=== PATIENT | male | born 1995 | race Caucasian/White ===

== ENCOUNTER 2017-01-19 19:57 | Emergency (ER) | payer OTHER ==
[~2017-01-19] VITALS: Ht 177.8 cm; Wt 99.3 kg
[2017-01-19 20:19] VITALS: Ht 177.8 cm; Wt 99.3 kg
[2017-01-19] MEDS ORDERED: FLUT9.9S NASAL (21:48)
[2017-01-19] MEDS ORDERED: BENZ100C70 PO (21:49)
[2017-01-19] MEDS ORDERED: LORA-186 PO (21:49)
[2017-01-19] MEDS ORDERED: IBUP400T22 PO (21:49)
--- NOTE | 2017-01-19 21:56 | RADRPT ---
PROCEDURE: XR Chest. CLINICAL INDICATION: Cough TECHNIQUE: Single AP portable chest. COMPARISON: None. FINDINGS: The cardiomediastinal silhouette is within normal limits of size ..The lungs are clear without pleur al effusion or focal consolidation. No pneumothorax. The osseous structures and soft tissues are unr emarkable. IMPRESSION: 1. No evidence for active cardiopulmonary disease. RPTAT:AAJJ Yanci Sagastume Physician Date Time Electronically viewed and signed by Yanci Sagastume Physician on 01/19/2017 21:55 CED/
--- NOTE | 2017-01-19 21:57 | ERD ---
ER Documentation Chief Complaint Date/Time DATE: 01/19/17 TIME: 21:55 Chief Complaint Cough and congestion X 1 month. HPI This is a 21-year-old male presenting to the emergency department complaining of cough, congestion for 1 month. Patient states the cough has been getting better. Denies any current fevers. Denies taking any medications for this. Denies any chest pain or shortness of breath. ROS All systems reviewed and are negative except as per history of present illness. Medications Home Meds Active Scripts Ibuprofen* (Ibuprofen*) 400 Mg Tablet, 400 MG PO Q6H Y for PAIN, #30 TAB Prov:BEAU DAS PA-C 01/19/17 Benzonatate* (Tessalon Perle*) 100 Mg Capsule, 100 MG PO Q8H Y for COUGH, #20 CAP Prov:BEAU DAS PA-C 01/19/17 Loratadine* (Claritin*) 10 Mg Tablet, 10 MG PO DAILY, #30 TAB Prov:BEAU DAS PA-C 01/19/17 Fluticasone Propionate (Flonase Allergy Relief) 9.9 Ml [place].susp, 1 SPRAY NASAL BID for 14 Days, #1 BOTTLE TO EACH NOSTRIL Prov:BEAU DAS PA-C 01/19/17 PMhx/Soc Medical and Surgical Hx: pt denies Surgical Hx History of Surgery: No Anesthesia Reaction: No Hx Neurological Disorder: No Hx Respiratory Disorders: No Hx Cardiac Disorders: No Hx Psychiatric Problems: Yes (adhd) Hx Miscellaneous Medical Probl: No Hx Alcohol Use: Yes Hx Substance Use: No Hx Tobacco Use: No Smoking Status: Never smoker Physical Exam Vitals Vital Signs Date Time Temp Pulse Resp B/P Pulse Ox O2 Delivery O2 Flow Rate FiO2 01/19/17 20:19 98.0 89 20 136/83 100 Physical Exam GENERAL: well-developed/well-nourished, in no apparent distress, non-toxic appearing HEAD: NC/AT, no swelling noted in frontal or maxillary areas EARS: bilateral tympanic membrane is intact without erythema or effusion NARES: congested THROAT: oropharynx non-erythematous, postnasal drip EYES: Conjunctiva normal NECK: Supple, no lymphadenopathy PULM: CTA bilaterally, no rales, rhonchi, or wheezing heard CV: Normal S1S2, RRR, good capillary refill GI: Soft, non-distended, normal bowel sounds, non-tender BACK: No midline tenderness, no masses EXT No clubbing, cyanosis, or edema NEURO: Alert and Orientated SKIN: Intact, normal turgor PSYCH: Normal mood and mentation Procedures/MDM 21-year-old male presenting to the emergency department complaining of cough and symptoms of upper respiratory infection for the past month, this is likely due to a viral illness. On examination patient was breathing well on room air, and her lungs are clear to auscultation bilaterally, he is afebrile. My clinical suspicion is low suspicion for bacterial sinusitis, pneumonia, strep pharyngitis, or pulmonary emergencies due to physical examination. Since patient's sister had pneumonia a week ago he wanted a chest x-ray, CXR on the ER. Radiologist stated no infiltrates, pneumothorax or pleural effusion. hemodynamically stable for discharge. Prescription for Flonase, ibuprofen, Tessalon Perles and Claritin was given to patient, discussed to return to the ED if not improving as expected or follow-up with a primary care physician. Patient understood and agreed with this plan. Departure Diagnosis: Primary Impression: URI (upper respiratory infection) URI type: unspecified viral URI Qualified Code: J06.9 - Viral upper respiratory tract infection Condition: Stable Patient Instructions: Preventing Common Respiratory Infections, Uri, Viral, No Abx (Adult) Additional Instructions: FOLLOW UP WITH YOUR PRIMARY CARE PHYSICIAN TOMORROW.Return to this facility if you are not improving as expected. Take all medicines as directed. Return to this facility if you are not improving as expected. BEAU DAS PA-C Jan 19, 2017 21:57
== END 2017-01-19 21:12 | disposition home or self-care (01) ==
LOC: FTE 19:57
DX: J06.9 Acute upper respiratory infection, unspecified (principal)
CPT/HCPCS: 71010